=== PATIENT | male | born 1970 | race Caucasian/White ===

== ENCOUNTER 2016-08-04 07:02 | Emergency (ER) | payer OTHER ==
--- NOTE | 2016-08-04 07:44 | ED ---
Chest Pain HPI - General Chief Complaint: Upper Respiratory Infection Stated Complaint: Chest Pain Time Seen by Provider: 08/04/16 07:16 Source: patient, RN notes reviewed Mode of arrival: ambulatory Limitations: no limitations - History of Present Illness Initial Comments: Patient is a 45-year-old man who states that around 6 AM just as he was arriving at work he experienced a substernal sensation of "numbing." He states that he also felt like there was a tingling going to both of his shoulders and then also down the rest of his body. He states that the feeling lasted about 30 seconds for resolved. He did not notice any worsening or relieving factors. He states that he had this previously and that prompted him to see a physician and have a stress test. This was about a year ago. MD Complaint: chest pain Onset/Timin -: hour(s) Onset: during rest Pain Location: substernal Pain Radiation: other (Of both shoulders) Severity: mild Quality: other (Patient describes this as a "numbing" sensation) Consistency: now resolved, other (This lasted approximately 30 seconds) Improves With: nothing Worsens With: nothing Treatments Prior to Arrival: aspirin - Related Data Home Medications Medication Instructions Recorded Confirmed Escitalopram [Lexapro] 20 mg PO DAILY 10/06/15 08/04/16 Multivitamins, Thera [Multivitamin] 1 tab PO DAILY 10/06/15 08/04/16 Aspirin EC [Ecotrin Low Dose] 81 mg PO DAILY 08/04/16 08/04/16 Previous Rx's Medication Instructions Recorded Hydrocodone/Acetaminophen [[place] 1 each PO Q6HR PRN #20 tab 08/04/16 5-325] Allergies Allergy/AdvReac Type Severity Reaction Status Date / Time No Known Allergies Allergy Verified 08/04/16 07:38 Review of Systems ROS Statement: Those systems with pertinent positive or pertinent negative responses have been documented in the HPI. ROS Other: All systems not noted in ROS Statement are negative. Constitutional: Denies: fever, chills, weakness ENT: Denies: throat pain Respiratory: Denies: cough, dyspnea Cardiovascular: Reports: as per HPI, chest pain. Denies: palpitations, dyspnea on exertion, orthopnea, edema, syncope Gastrointestinal: Denies: abdominal pain, nausea, vomiting Genitourinary: Denies: dysuria Musculoskeletal: Denies: back pain Skin: Denies: rash Neurological: Denies: headache, weakness, numbness Psychiatric: Reports: anxiety EKG Findings - EKG Results: EKG: interpreted by NICKD, sinus rhythm (Rate approximately 84 bpm.), normal axis , normal QRS (Low voltage QRS), normal ST/T Past Medical History Past Medical History: Hyperlipidemia History of Any Multi-Drug Resistant Organisms: None Reported Past Surgical History: Heart Catheterization, Hernia Repair Past Psychological History: No Psychological Hx Reported Smoking Status: Former smoker Past Alcohol Use History: Rare Past Drug Use History: None Reported General Exam Limitations: no limitations General appearance: alert, in no apparent distress Head exam: Present: atraumatic, normocephalic Eye exam: Present: normal appearance. Absent: scleral icterus, conjunctival injection ENT exam: Present: normal oropharynx Neck exam: Present: normal inspection, full ROM Respiratory exam: Present: normal lung sounds bilaterally. Absent: respiratory distress, wheezes, rales, rhonchi, stridor Cardiovascular Exam: Present: regular rate, normal rhythm, normal heart sounds. Absent: systolic murmur, diastolic murmur, rubs, gallop GI/Abdominal exam: Present: soft. Absent: distended, tenderness, guarding, rebound Extremities exam: Present: normal inspection, normal capillary refill. Absent: pedal edema, calf tenderness Back exam: Present: normal inspection. Absent: CVA tenderness (R), CVA tenderness (L) Neurological exam: Present: alert Skin exam: Present: warm, dry, intact, normal color. Absent: rash, cyanosis, diaphoretic, erythema, petechiae, pallor, mottled Course Vital Signs 08/04/16 08/04/16 08/04/16 07:08 07:30 08:00 Temperature 98.1 F Pulse Rate 105 H 78 94 Respiratory 18 18 18 Rate Blood Pressure 141/92 143/96 130/84 O2 Sat by Pulse 99 96 97 Oximetry 08/04/16 08/04/16 08/04/16 08:47 09:47 10:17 Temperature Pulse Rate 82 66 64 Respiratory 16 16 16 Rate Blood Pressure 127/79 120/75 118/78 O2 Sat by Pulse 99 97 98 Oximetry 08/04/16 13:06 Temperature 97.2 F L Pulse Rate 84 Respiratory 18 Rate Blood Pressure 111/74 O2 Sat by Pulse 98 Oximetry Chest Pain MDM - MDM This patient is a 45-year-old man with epigastric and substernal chest pain, found to have mild elevation of pancreatic labs. We did obtain 2 sets of troponins as precaution, the patient to follow-up to ensure return of the pancreatic labs to baseline also will follow-up to have stress test. Reviewed return parameters and patient will return should any chest symptoms recur. Disposition Clinical Impression: Chest pain, Pancreatitis Disposition: HOME SELF-CARE Condition: Good Instructions: Chest Pain (ED), Pancreatitis (ED) Additional Instructions: As we discussed, follow-up to have the stress test arranged within the next week. He may also need to see the certified adapted physical educator. If your symptoms recur return to the emergency department to have the stress test arranged as inpatient. Prescriptions: Hydrocodone/Acetaminophen [[place] 5-325] 1 each PO Q6HR PRN #20 tab PRN Reason: Pain Referrals: Shaun Rodríguez DO [Primary Care Provider] - 1-2 days
[2016-08-04 07:57] LABS: Basophils % (A) 1 %; CH 30.4; CHCM 33.9; Eosinophils # (A) 0.2 k/uL (0-0.7); Eosinophils % (A) 5 %; HCT 44.3 % (39.0-53.0); HDW 2.38; HGB 14.7 gm/dL (13.0-17.5); Luc # (Auto) 0.14; Luc % (Auto) 3; Lymphocytes % (A) 24 %; MCH 29.9 pg (25.0-35.0); MCHC 33.2 g/dL (31.0-37.0); MCV 90.2 fL (80.0-100.0); Mean Platelet Volume 8.3; Monocytes # (A) 0.4 k/uL (0-1.0); Monocytes % (A) 8 %; Neutrophils # (A) 2.6 k/uL (1.3-7.7); Neutrophils % (A) 59 %; RBC 4.91 m/uL (4.30-5.90); RDW 12.8 % (11.5-15.5); WBC 4.4 k/uL (3.8-10.6); WBC (Perox) 4.27
[2016-08-04 08:12] LABS: ALT 39 U/L (21-72); AST 25 U/L (17-59); Alkaline Phosphatase 27 U/L (38-126); Amylase 124 U/L (30-110); Anion Gap 14 mmol/L; Blood Urea Nitrogen 17 mg/dL (9-20); Calcium 9.6 mg/dL (8.4-10.2); Carbon Dioxide 26 mmol/L (22-30); Chloride 105 mmol/L (98-107); Glucose 114 mg/dL (74-99); Non-African American GFR(MDRD) >60 (>60 ml/min/1.73 sqM); Potassium 4.6 mmol/L (3.5-5.1); Sodium 145 mmol/L (137-145); Total Bilirubin 0.6 mg/dL (0.2-1.3); Total Protein 7.3 g/dL (6.3-8.2)
[2016-08-04 08:13] LABS: Partial Thromboplastin Time 24.6 sec (22.0-30.0)
--- NOTE | 2016-08-04 08:16 | XR ---
EXAMINATION TYPE: XR chest 1V portable DATE OF EXAM: 08/04/2016 7:57 AM Comparison: 01/03/2015 Clinical History: 45-year-old male with chest pain Findings: The cardiomediastinal silhouette, aorta, and pulmonary vasculature are within normal limits. Lungs and pleural spaces are clear. Impression: No acute cardiopulmonary process.
--- NOTE | 2016-08-04 09:55 | US ---
EXAMINATION TYPE: US abdomen limited DATE OF EXAM: 08/04/2016 9:24 AM COMPARISON: 2016 in PACS CLINICAL HISTORY: 45-year-old male with pain, attention gallbladder and pancreas. TECHNIQUE: Multiple sonographic images of the right upper quadrant were obtained. FINDINGS: Liver Length: 16.9 cm Gallbladder Wall: 3 mm, upper limits of normal. CBD: 0.4 cm Right Kidney: 11.3 x 5.1 x 5.0 cm Pancreas: Suboptimal visualization of the pancreatic tail secondary to shadowing from bowel gas. Vis ualized portions show no gross abnormality. Liver: Upper limits of normal for size with mild diffuse increased echogenicity especially when comp ared to the adjacent right kidney. No focal lesion is seen. Gallbladder: No abnormal gallbladder distention, wall thickening, pericholecystic fluid, or shadowin g calculi. Evidence for sonographic Dominguez's sign: No CBD: Within normal limits. Right Kidney: Limited visualization of the lower pole secondary to bowel gas shadowing. No hydronephr osis. IMPRESSION: 1. No evidence for cholelithiasis or acute cholecystitis. 2. Suboptimal visualization of the pancreatic tail. Remainder of the pancreas shows no gross sonograp hic abnormality. 3. Borderline liver size with findings suggesting hepatic steatosis. Correlate with LFTs, lipid profi le, and patient risk factors.
[2016-08-04 13:08] VITALS: BP 111/74; PULSE 84; RESP 18; TEMP 97.2
== END 2016-08-04 13:08 | disposition home or self-care (01) ==
LOC: EC 07:02
DX: K85.90 Acute pancreatitis without necrosis or infection, unspecified (principal); R07.9 Chest pain, unspecified; F41.9 Anxiety disorder, unspecified; Z79.82 Long term (current) use of aspirin; Z79.899 Other long term (current) drug therapy; Z87.891 Personal history of nicotine dependence
CPT/HCPCS: 36415; 71010; 76705; 80053; 82150; 83690; 83735; 84484; 85025; 85379; 85610; 85730; 93005; 99284